=== PATIENT | female | born 1955 | race Caucasian/White ===

== ENCOUNTER 2018-02-20 04:27 | Inpatient (IN) | payer BC ==
[~2018-02-20] VITALS: Ht 152.4 cm; Wt 60.6 kg
[2018-02-20] VITALS (321 sets, daily range): BP systolic 124–137; BP diastolic 69–71; PULSE 92–115; TEMP 99.1–99.5; O2SAT 31–100
[2018-02-20 05:03] LABS: BASO # 0.1 (0.0-0.2); BASO % 0.5 % (0.0-2.0); EOS # 0.1 (0.0-0.7); EOS % 0.5 % (0-4.0); GRAN # 8.8 (1.4-6.5); GRAN % 81.3 % (42.2-75.2); HEMATOCRIT 38.4 % (37.0-47.0); LYMPH # 1.1 (1.2-3.4); LYMPH % 10.1 % (20.0-51.0); MEAN CELL VOLUME 85 fl (80.0-100.0); MEAN CORPUSCULAR HEMOGLOBIN 31 pg (27.0-31.0); MEAN CORPUSCULAR HGB CONC 37 g/dl (33.0-37.0); MONO # 0.7 (0.1-0.6); MONO % 6.5 % (1.7-9.3); PLATELET COUNT 448 K/mm3 (130-400); RED BLOOD COUNT 4.51 M/mm3 (4.10-5.30); REDCELL DISTRIBUTION WIDTH-CV 12.3 % (11.5-14.5)
[2018-02-20 05:15] LABS: ALANINE AMINOTRANSFERASE 24 U/L (9-52); ALBUMIN 4.2 gm/dL (3.5-5.0); ALKALINE PHOSPHATASE 141 U/L (50-136); ANION GAP 14 mmol/L (7-16); AST,SGOT 30 U/L (15-37); BILIRUBIN,TOTAL 0.6 mg/dL (0.0-1.0); BLOOD UREA NITROGEN 3 mg/dL (7-17); C-REACTIVE PROTEIN 0.6 mg/dL (0.0-0.9); CALCIUM 9.4 mg/dL (8.4-10.2); CARBON DIOXIDE 24 mmol/L (22-30); CREATININE, serum 0.53 mg/dL (0.52-1.25); GLUCOSE 129 mg/dL (74-106); POTASSIUM 3.2 mmol/L (3.4-5.0); TOTAL PROTEIN 7.6 gm/dL (6.4-8.2)
[2018-02-20 05:20] LABS: CHLORIDE 79 mmol/L (98-107); SODIUM 117 mmol/L (137-145)
[2018-02-20 05:29] LABS: PROLACTIN 60.7 ng/mL (3.0-18.6); TROPONIN-I < 0.012 ng/mL (0.000-0.034)
[2018-02-20 06:12] LABS: COLLECTION METHOD CLEAN CATCH
[2018-02-20 06:18] LABS: PH 8 (5-8); SQUAMOUS EPITHELIAL 0-2 /hpf; URINE APPEARANCE Clear; URINE BACTERIA None Seen /hpf; URINE BILIRUBIN Negative (NEGATIVE); URINE BLOOD 1+ (NEGATIVE); URINE COLOR Straw; URINE GLUCOSE Negative (NEGATIVE); URINE KETONE 1+ (NEGATIVE); URINE LEUKOCYTE ESTERASE Negative (NEGATIVE); URINE NITRATE Negative (NEGATIVE); URINE PROTEIN(semi-quant) 1+ (NEGATIVE); URINE UROBILINOGEN Negative (NEGATIVE)
[2018-02-20 06:27] LABS: TRICYCLIC ANTIDEPRESS URINE NEGATIVE
[2018-02-20] MEDS ORDERED: AMBIEN 5MG TABLE5 MG PO (06:30)
[2018-02-20] MEDS ORDERED: BRINTELLIX10 PO (06:30)
[2018-02-20] MEDS ORDERED: WELLBUTRIN XL300 M1 PO (06:31)
[2018-02-20] MEDS ORDERED: SYNTHROID0.05 MG/TA PO (06:32)
[2018-02-20] MEDS ORDERED: ZOCOR 20MG20 MG PO (06:32)
[2018-02-20] MEDS ORDERED: PROTONIX 40MG T40 MG PO (06:33)
[2018-02-20] MEDS ORDERED: PROAIR HFA0.09 MG/AC IH (06:33)
[2018-02-20 12:15] LABS: CALCIUM 8.9 mg/dL (8.4-10.2); CREATININE, serum 0.48 mg/dL (0.52-1.25); POTASSIUM 3.2 mmol/L (3.4-5.0)
[2018-02-20 18:06] LABS: CALCIUM 9.7 mg/dL (8.4-10.2); CREATININE, serum 0.45 mg/dL (0.52-1.25); POTASSIUM 4.2 mmol/L (3.4-5.0)
[2018-02-21] VITALS (774 sets, daily range): BP systolic 99–147; BP diastolic 49–74; PULSE 84–99; TEMP 98.1–98.4; O2SAT 34–100
[2018-02-21 00:03] LABS: CALCIUM 8.6 mg/dL (8.4-10.2); CREATININE, serum 0.55 mg/dL (0.52-1.25); POTASSIUM 3.3 mmol/L (3.4-5.0)
[2018-02-21 13:50] LABS: CALCIUM 8.7 mg/dL (8.4-10.2); CREATININE, serum 0.43 mg/dL (0.52-1.25); POTASSIUM 3.4 mmol/L (3.4-5.0)
[2018-02-21 19:52] LABS: CALCIUM 8.3 mg/dL (8.4-10.2); CREATININE, serum 0.56 mg/dL (0.52-1.25); POTASSIUM 3.9 mmol/L (3.4-5.0)
[2018-02-21] MEDS ORDERED: IPRATROPIUM BROM3 M1 IH (20:47)
[2018-02-21] MEDS ORDERED: NASONEX SPRAY17 GM NS (20:49)
[2018-02-21] MEDS ORDERED: PROAIR HFA0.09 MG/AC IH (20:49)
[2018-02-22] VITALS (384 sets, daily range): BP systolic 132–145; BP diastolic 62–72; PULSE 83–96; TEMP 98–98.7; O2SAT 40–100
[2018-02-22 03:11] LABS: URINE PROTEIN:CREAT RATIO 0.94 (0.00-0.14)
[2018-02-22 04:16] LABS: CALCIUM 8.6 mg/dL (8.4-10.2); CREATININE, serum 0.5 mg/dL (0.52-1.25); POTASSIUM 3.7 mmol/L (3.4-5.0)
[2018-02-22 09:36] LABS: CALCIUM 8.5 mg/dL (8.4-10.2); CREATININE, serum 0.49 mg/dL (0.52-1.25)
[2018-02-22 09:39] LABS: POTASSIUM 3.6 mmol/L (3.4-5.0)
[2018-02-23] VITALS (7 sets, daily range): BP systolic 131–157; BP diastolic 55–89; PULSE 87–98; TEMP 97.4–98.4
[2018-02-23 08:01] LABS: CALCIUM 9.3 mg/dL (8.4-10.2); CREATININE, serum 0.54 mg/dL (0.52-1.25); POTASSIUM 4.1 mmol/L (3.4-5.0)
[2018-02-23 09:33] LABS: COLLECTION METHOD CLEAN CATCH
[2018-02-23 09:46] LABS: MUCOUS Present /lpf; PH 7 (5-8); URINE APPEARANCE Cloudy; URINE BACTERIA Occasional /hpf; URINE BILIRUBIN Negative (NEGATIVE); URINE BLOOD 3+ (NEGATIVE); URINE COLOR Yellow; URINE GLUCOSE Negative (NEGATIVE); URINE KETONE Negative (NEGATIVE); URINE LEUKOCYTE ESTERASE 3+ (NEGATIVE); URINE NITRATE Negative (NEGATIVE); URINE PROTEIN(semi-quant) 2+ (NEGATIVE); URINE RBC >50 /hpf; URINE UROBILINOGEN Negative (NEGATIVE)
[2018-02-24 04:27] VITALS: BP 149/62; PULSE 102; TEMP 98.2
[2018-02-24 06:23] LABS: BASO # 0.1 (0.0-0.2); BASO % 0.8 % (0.0-2.0); EOS # 0.4 (0.0-0.7); EOS % 4.8 % (0-4.0); GRAN # 4.4 (1.4-6.5); GRAN % 60.6 % (42.2-75.2); HEMOGLOBIN 12.2 g/dl (12.5-16.0); LYMPH # 1.8 (1.2-3.4); LYMPH % 24.5 % (20.0-51.0); MEAN CELL VOLUME 93 fl (80.0-100.0); MEAN CORPUSCULAR HEMOGLOBIN 31 pg (27.0-31.0); MEAN CORPUSCULAR HGB CONC 34 g/dl (33.0-37.0); MEAN PLATELET VOLUME 8.6 fl (7.4-10.4); MONO # 0.6 (0.1-0.6); MONO % 8.8 % (1.7-9.3); PLATELET COUNT 466 K/mm3 (130-400); REDCELL DISTRIBUTION WIDTH-CV 13.2 % (11.5-14.5)
[2018-02-24 06:26] LABS: HEMATOCRIT 36.2 % (37.0-47.0)
[2018-02-24 06:42] LABS: CALCIUM 9.2 mg/dL (8.4-10.2); CREATININE, serum 0.5 mg/dL (0.52-1.25); POTASSIUM 3.9 mmol/L (3.4-5.0)
[2018-02-24 07:45] VITALS: BP 137/53; PULSE 92; TEMP 97.8
[2018-02-24] MEDS ORDERED: CEFTIN 250250 MG/TAB PO (09:57)
[2018-02-24] MEDS ORDERED: ROXICODONE 55 MG/TAB PO (10:01)
== END 2018-02-24 13:00 | disposition home or self-care (01) | DRG 643 ==
LOC: COL.ER 04:27 → ICU 10:24 → MEDICAL 10:24
PROVIDERS: Emergency Medicine; Hospitalist; Internal Medicine; Internal Medicine Nephrology; Physician Assistant
DX: E22.2 Syndrome of inappropriate secretion of antidiuretic hormone (principal); G93.40 Encephalopathy, unspecified; F11.20 Opioid dependence, uncomplicated; K59.00 Constipation, unspecified; M85.80 Other specified disorders of bone density and structure, unspecified site; I10 Essential (primary) hypertension; F32.9 Major depressive disorder, single episode, unspecified; N39.0 Urinary tract infection, site not specified; B96.1 Klebsiella pneumoniae [K. pneumoniae] as the cause of diseases classified elsewhere; E87.6 Hypokalemia; J45.909 Unspecified asthma, uncomplicated; Z96.641 Presence of right artificial hip joint
CPT/HCPCS: 99223-AI; 99231-AI; 99232-AI; 99233-AI; 99239; J0696; J1644; J2060; J2270; J2405; J2597; J3475; J3480; J7030; J7070

== ENCOUNTER → 2019-01-21 | Outpatient (CLI) | payer BC ==
[~2019-01-21] MED LIST: AMBIEN 5MG TABLE5 MG PO; BRINTELLIX10 PO; CEFTIN 250250 MG/TAB PO; IPRATROPIUM BROM3 M1 IH; NASONEX SPRAY17 GM NS; PROAIR HFA0.09 MG/AC IH; PROTONIX 40MG T40 MG PO; ROXICODONE 55 MG/TAB PO; SYNTHROID0.05 MG/TA PO; WELLBUTRIN XL300 M1 PO; ZOCOR 20MG20 MG PO
[2019-01-21 18:12] LABS: BASO # 0.1 (0.0-0.2); BASO % 0.8 % (0.0-2.0); EOS # 0.2 (0.0-0.7); GRAN # 7.7 (1.4-6.5); GRAN % 74.9 % (42.2-75.2); HEMATOCRIT 39.6 % (37.0-47.0); LYMPH # 1.7 (1.2-3.4); LYMPH % 16.4 % (20.0-51.0); MEAN CELL VOLUME 95 fl (80.0-100.0); MEAN CORPUSCULAR HEMOGLOBIN 31 pg (27.0-31.0); MEAN CORPUSCULAR HGB CONC 33 g/dl (33.0-37.0); MEAN PLATELET VOLUME 8.8 fl (7.4-10.4); MONO # 0.6 (0.1-0.6); MONO % 5.6 % (1.7-9.3); PLATELET COUNT 489 K/mm3 (130-400); RED BLOOD COUNT 4.17 M/mm3 (4.10-5.30); REDCELL DISTRIBUTION WIDTH-CV 12.3 % (11.5-14.5)
[2019-01-21 18:17] LABS: POTASSIUM 4.6 mmol/L (3.4-5.0)
[2019-01-21 18:20] LABS: ALBUMIN 4.7 gm/dL (3.5-5.0); BILIRUBIN,TOTAL 0.3 mg/dL (0.0-1.0); C-REACTIVE PROTEIN 1.2 mg/dL (0.0-0.9); CALCIUM 10.3 mg/dL (8.4-10.2); CREATININE, serum 0.7 (0.52-1.25); TOTAL PROTEIN 7.7 gm/dL (6.4-8.2)
[2019-01-21 18:36] LABS: ERYTHROCYTE SEDIMENTATION RATE 13 mm/hr (0-30)
== END ==
LOC: ZCOL.LAB 16:55
PROVIDERS: Nurse Practitioner Family
DX: S72.141K Displaced intertrochanteric fracture of right femur, subsequent encounter for closed fracture with nonunion (principal)